=== PATIENT | female | born 1965 | race African-American/Black ===

== ENCOUNTER 2023-11-03 08:17 | Emergency (ER) | payer OTHER ==
[2023-11-03 08:44] VITALS: BP 124/72; PULSE 66; RESP 20; TEMP 98.6; BMI 28.0
[2023-11-03 09:20] LABS: HEMOGLOBIN 12.9 G/dL (10.7-15.3); MCHC 32.2 g/dl (32.0-36.0); MEAN CELL VOLUME 93.2 fl (80-96); MEAN PLT VOLUME 8.2 fl (7.5-11.1); RBC 4.29 10^6/uL (3.60-5.2); RDW 14.3 % (11.6-15.6); WHITE BLOOD COUNT 5.9 10^3/uL (4.0-10.8)
[2023-11-03 09:48] LABS: ALBUMIN 4.1 g/dl (3.4-5.0); BILIRUBIN,TOTAL 0.5 mg/dl (0.2-1); CALCIUM 9.4 mg/dl (8.5-10.1); POTASSIUM 4.1 mmol/L (3.5-5.1); TOT PROT 6.9 g/dl (6.4-8.2)
[2023-11-03 10:01] LABS: PLATELET ESTIMATE ADEQUATE
[2023-11-03] MEDS ORDERED: ACETAMINOPHEN 325 MG TABLET (FP) ONE (10:59)
[2023-11-03] MEDS ORDERED: FAMOTIDINE 20 MG TABLET ONE (10:59)
[2023-11-03] MEDS ORDERED: MAG HYDROX/AL HYDROX/SIMETH 30 ML UNIT-DOSE CUP ONE (10:59)
[2023-11-03] MEDS: MAG HYDROX/AL HYDROX/SIMETH -MYLANTA- ORAL SUSPENSION PO ONE (11:04)
[2023-11-03] MEDS: FAMOTIDINE 20 MG TABLET PO ONE (11:04)
[2023-11-03] MEDS: ACETAMINOPHEN 325 MG TABLET (FP) PO ONE (11:04)
== END 2023-11-03 11:58 | disposition home or self-care (01) ==
LOC: FER 08:17
DX: R10.13 Epigastric pain (principal)
CPT/HCPCS: 36415; 76705-TC; 80053; 85027; 99284-25

== ENCOUNTER 2023-11-17 09:59 | Emergency (ER) | payer OTHER ==
[2023-11-17 10:09] VITALS: BP 134/59; PULSE 70; RESP 20; TEMP 98.2; BMI 26.6
[2023-11-17] MEDS ORDERED: IBUPROFEN 600 MG TABLET (FP) PO ONE (10:41)
[2023-11-17] MEDS ORDERED: LIDOCAINE 5% TOPICAL PATCH ONE (10:42)
[2023-11-17] MEDS ORDERED: METHOCARBAMOL 500 MG TABLET ONE (10:42)
[2023-11-17] MEDS: LIDOCAINE 5% TOPICAL PATCH TP ONE (10:43)
[2023-11-17] MEDS: METHOCARBAMOL 500 MG TABLET PO ONE (10:44)
[2023-11-17] MEDS: IBUPROFEN 400 MG TABLET (FP) PO ONE (10:44)
[2023-11-17] MEDS ORDERED: LIDOCAINE PATCH REMOVAL MC SCH (22:00)
== END 2023-11-17 11:12 | disposition home or self-care (01) ==
LOC: FER 09:59
DX: M62.838 Other muscle spasm (principal); M54.2 Cervicalgia
CPT/HCPCS: 99283-25